=== PATIENT | male | born 1960 | race Caucasian/White ===

== ENCOUNTER 2018-10-10 05:55 | Day surgery (SDC) | payer OTHER ==
[~2018-10-10] VITALS: Ht 167.6 cm; Wt 70.3 kg
[~2018-10-10 05:55] MED LIST: BP MED; CA+; HTN MED
[2018-10-10 06:59] VITALS: Ht 167.6 cm; Wt 70.3 kg
[2018-10-10 07:26] VITALS: BP 155/88; PULSE 69; RESP 12
[2018-10-10] MEDS ORDERED: LIDOCAINE 2% (SDV) 5 ML INJ ONE (08:10)
[2018-10-10] MEDS ORDERED: PROPOFOL 200 MG INJ ONE (08:10)
[2018-10-10] MEDS ORDERED: PROPOFOL 40 ML ONE (08:10)
--- NOTE | 2018-10-10 08:10 | PREAC ---
Date/Time of Note Date/Time of Note DATE: 10/10/18 TIME: 08:09 Anesthesia Eval and Record Evaluation Time Pre-Procedure Interview DATE: 10/10/18 TIME: 08:09 Age 58 Sex male NPO: 8 hrs Preoperative diagnosis screening Planned procedure colonoscopy Past Medical History Past Medical History: Includes Cardio: HTN Endo: Diabetes Surgery & Anesthesia Issues No known issue Meds Anticoagulation: No Beta Greg within 24 hr: No Reason Beta Greg not given: Pt. not on B-Greg Reported Medications [Ca+] No Conflict Check 10/10/18 [Bp Med] No Conflict Check 10/10/18 [Htn Med] No Conflict Check 10/10/18 Meds reviewed: Yes Allergies Coded Allergies: No Known Allergy (Unverified , 10/10/18) Allergies Reviewed: Yes Labs/Studies Labs Reviewed: Reviewed by anesthesiologist test: N/A Pre-procedure Exam Last vitals Vital Signs Date Temp Pulse Resp B/P (MAP) Pulse Ox O2 O2 Flow FiO2 Time Delivery Rate 10/10/18 97.0 69 12 155/88 99 Room Air 07:26 (110) Airway: Adequate mouth opening, Adequate thyromental dist Mallampati: Mallampati III Teeth: Normal Lung: Normal Heart: Normal ASA Physical Status ASA physical status: 3 Emergency: None Pre-operative Attestations Prior to commencing anesthesia and surgery, the patient was re-evaluated, there was verification of: *The patient's identity *The results of appropriate recent lab work and preoperative vital signs *The above evaluation not changing prior to induction *Anesthetic plan, risk benefits, alternative and complications discussed with patient/family; questions answered; patient/family understands, accepts and wishes to proceed. LUTHER CALIX DO Oct 10, 2018 08:10
[2018-10-10 09:02] VITALS: BP 150/83; PULSE 61; RESP 16
--- NOTE | 2018-10-10 18:07 | PAC ---
Date/Time of Note Date/Time of Note DATE: 10/10/18 TIME: 18:07 Post-Anesthesia Notes Post-Anesthesia Note Last documented vital signs Vital Signs Date Temp Pulse Resp B/P (MAP) Pulse Ox O2 O2 Flow FiO2 Time Delivery Rate 10/10/18 61 16 150/83 98 Room Air 09:02 (105) 10/10/18 97.0 07:26 Activity: WNL Respiratory function: WNL Cardiovascular function: WNL Mental status: Baseline Pain reasonably controlled: Yes Hydration appropriate: Yes Nausea/Vomiting absent: Yes LUTHER CALIX DO Oct 10, 2018 18:07
== END 2018-10-10 12:58 | disposition home or self-care (01) ==
LOC: GIL 05:55
PROVIDERS: ATTEND Internal Medicine Gastroenterology
DX: Z12.11 Encounter for screening for malignant neoplasm of colon (principal); K64.8 Other hemorrhoids; K57.30 Diverticulosis of large intestine without perforation or abscess without bleeding; E11.9 Type 2 diabetes mellitus without complications; I10 Essential (primary) hypertension
CPT/HCPCS: 45378; 82962; Z7610